=== PATIENT | male | born 1970 | race Caucasian/White ===

== ENCOUNTER 2022-08-29 06:41 | Day surgery (SDC) | payer OTHER, SELFPAY ==
[2022-07-18 10:17] VITALS: BMI 32.2
[2022-08-17 11:05] VITALS: BMI 31.8
--- NOTE | 2022-08-29 06:54 | WPDANESEPPF ---
Anes - Initial Pre Proc Eval Procedure: Operation Date: 08/29/22 08:30 Proposed Procedures p Screening Colonoscopy - Rambo Diamond MD Date/Time: 08/29/22 06:54 Surgeon: Rambo Diamond MD Pre Op Diagnosis: Neoplasm Screening Patient Data Age: 52 Gender: M Height: 1.83 m Weight: 106.5 kg Allergies Allergy/AdvReac Type Severity Reaction Status Date / Time No Known Allergies Allergy Verified 08/29/22 07:18 Home Medications Medication Instructions Recorded Confirmed Type rosuvastatin 10 mg tablet (Crestor) 10 mg PO DAILY 08/17/22 08/29/22 History Patient hx anesthesia problems: none Family hx anesthesia problems: none Results Review: All pre-operative results and documents have been reviewed as part of the pre-operative evaluation. [facility] Past Medical History Medical History (Updated 08/29/22 @ 08:33 by Rambo Diamond MD) Colon cancer screening Hyperlipidemia Surgical History Surgical History S/P appy Family History Family History Mother Breast cancer H/O placement of stent in anterior descending branch of left coronary artery Unknown Heart disease Cerebrovascular accident Allergy Social History Social History Smoking status: Never smoker Tobacco type: smokeless tobacco Smokeless tobacco user: chewing tobacco Alcohol intake: current Substance use: never Substance use type: does not use Living arrangements: with family Occupation/Education: occupation Additional occupation/education comments: sales Gender identity (if verbalized by the patient): Male Spiritual care concerns: No Anes - Eval Final PreProcedure Day of Procedure 08/29/22 06:54 Patient weight: obese Heart: regular rate and rhythm Lungs: clear to auscultation Airway: Mallampati scale class II Neurological: alert and oriented Last oral intake: >/= 8 hours ASA classification: II Emergent: no Anesthetic plan: proceed Anesthesia type and monitoring: general GIVS and standard monitoring Results Review: All pre-operative results and documents have been reviewed as part of the pre-operative evaluation. Informed Consent: The patient's anesthetic plan and its attendant risks and benefits were discussed with the patient/family/POA. Questions were solicited and answers provided to the satisfaction of the patient/family/POA.
[2022-08-29 07:15] VITALS: BP 128/97; PULSE 63; RESP 20; TEMP 36.4; O2SAT 98
[2022-08-29] MEDS: LACTATED RINGERS 1,000 ML 150 ML IV CONT (07:25)
--- NOTE | 2022-08-29 08:31 | PM.HPGS ---
History of Present Illness History of Present Illness Consent: Risks, benefits, and alternatives have been discussed and questions answered. Patient agrees to proceed with procedure. Chief complaint: Neoplasm Screening Narrative: Dallas Fontenot is a 52 year old male here for first screening colonoscopy Review of Systems Constitutional: Constitutional: Denies headache(s) and Denies weakness Eyes: Eyes: Denies blurry vision ENT: Reports Normal hearing present, Denies headache(s) and Denies neck pain Cardiovascular: Cardiovascular: Denies chest pain and Denies dyspnea Respiratory: Respiratory: Denies dyspnea Gastrointestinal: Gastrointestinal: Reports no additional gastrointestinal complaints Genitourinary: Genitourinary: Denies dysuria Musculoskeletal: Musculoskeletal: Denies neck pain Integumentary/Breasts: Skin/Breast: Denies dry skin Neurologic: Reports Normal hearing present, Denies headache(s) and Denies weakness Psychiatric: Psychiatric: Denies anxiety Endocrine: Endocrine: Denies change in body appearance Hematologic/Lymphatic: Hematologic/Lymphatic: Denies easy bleeding Allergic/Immunologic: Allergic/Immunologic: Denies urticaria PMF Past Medical History Medical History (Updated 08/29/22 @ 08:33 by Rambo Diamond MD) Colon cancer screening Hyperlipidemia Surgical History Surgical History S/P appy Family History Family History Mother Breast cancer H/O placement of stent in anterior descending branch of left coronary artery Unknown Heart disease Cerebrovascular accident Allergy Social History Social History Smoking status: Never smoker Tobacco type: smokeless tobacco Smokeless tobacco user: chewing tobacco Alcohol intake: current Substance use: never Substance use type: does not use Living arrangements: with family Occupation/Education: occupation Additional occupation/education comments: sales Gender identity (if verbalized by the patient): Male Spiritual care concerns: No Meds Home Medications and Allergies Home Medications Medication Instructions Recorded Confirmed Type rosuvastatin 10 mg tablet (Crestor) 10 mg PO DAILY 08/17/22 08/29/22 History Allergies Allergy/AdvReac Type Severity Reaction Status Date / Time No Known Allergies Allergy Verified 08/29/22 07:18 Vital Signs Vital Signs - 24 hr 08/29/22 07:15 Temperature 97.5 F L Pulse Rate 63 Respiratory Rate 20 Blood Pressure 128/97 H Pulse Oximetry 98 Oxygen Delivery Room Air Exam Const: General: comfortable and no acute distress HENMT: Face/Nose/Sinus: Normal nares present Eyes: General: appearance normal, both eyes and all related structures Neck: Neck: no JVD Resp: Auscultation: clear to auscultation bilaterally Cardio: Rate: regular rate Rhythm: regular rhythm GI: Inspection: non-distended GI Palp: Yes Soft to palpation Skin: General skin exam: normal color Neuro: General: gait normal Speech: normal speech Extrem: General: normal to inspection Psych: Mental Status: mental status grossly normal Assessment and Plan Assessment and plan (1) Colon cancer screening: Code(s): Z12.11 - Encounter for screening for malignant neoplasm of colon Status: Acute Assessment and Plan: colonoscopy
[2022-08-29 08:49] VITALS: BP 117/73; PULSE 66; RESP 16; O2SAT 99
[2022-08-29 08:59] VITALS: BP 110/88; PULSE 68; RESP 16; O2SAT 98
[2022-08-29 09:09] VITALS: BP 113/77; PULSE 64; RESP 18; O2SAT 98
--- NOTE | 2022-08-29 11:10 | WPDANESPN ---
Anes - Prog Note Post-Op Date/Time: 08/29/22 11:10 Cardiovascular status: normal Respiratory status: normal Airway patency: baseline Mental status: baseline Post-Op hydration status: normal Vital Signs: Last Vital Signs Temp 36.4 C L 08/29/22 07:15 Pulse 64 08/29/22 09:09 Resp 18 08/29/22 09:09 BP 113/77 08/29/22 09:09 Pulse Ox 98 08/29/22 09:09 O2 Del Method Room Air 08/29/22 09:09 Pain Score (VAS): 0 I/O: Intake & Output 08/28/22 08/29/22 08/29/22 23:59 07:59 15:59 Intake Total 350 Balance 350 Post-procedural complaints: none Patient Feedback: Patient satisfied with anesthetic care. Other Findings: Patient vital signs back to baseline. Patient denies nausea and vomiting. Patient's pain under control. Patient OK for discharge.
== END 2022-08-29 09:25 | disposition home or self-care (01) ==
PROVIDERS: PCP Emergency Medicine; Visit Provider Internal Medicine Gastroenterology
PROC: 0DJD8ZZ Inspection of Lower Intestinal Tract, Via Natural or Artificial Opening Endoscopic (ICD-10-PCS; CPT 45378; principal; 2022-08-29 08:30)
DX: Z12.11 Encounter for screening for malignant neoplasm of colon (principal)
CPT/HCPCS: 45378